=== PATIENT | female | born 1990 | race Two or more races ===

== ENCOUNTER 2017-07-11 19:24 | Emergency (ER) | payer OTHER ==
[~2017-07-11] VITALS: Ht 165.1 cm; Wt 72.6 kg
[2017-07-11] MEDS ORDERED: LITHIUM (19:41)
[2017-07-11] MEDS ORDERED: [UNRECOGNIZED DRUG - REMARK] (19:41)
[2017-07-11] MEDS ORDERED: ABILIFY (19:41)
[2017-07-11] MEDS ORDERED: ENALAPRIL (19:44)
--- NOTE | 2017-07-11 19:50 | NUR ---
Pt resting in position of comfort for self on gurney. Pt has noted flat affect and monotone speech. Pt denies SI and denies HI. Pt denies auditory or visual hallucinations. Per EMS [place] with and her mother and not wanting to go home with either one. When asked pt sts she wants to go home but not with "him" (refering to ). When asked who she sees him as she sts " he is the devil." When pt is questioned about her mother pt sts "she is not my mother." When asked who she believes her to be, pt sts " I dont know but my mother lives in [place]."
[2017-07-11 19:58] LABS: BASOPHILS # (AUTO) 0.1 K/uL (0.0-8.0); EOSINOPHILS % (AUTO) 0.2 % (0.0-7.0); HEMATOCRIT 44.2 % (31.2-41.9); HEMOGLOBIN 14.5 g/dL (10.9-14.3); LYMPHOCYTES # (AUTO) 2.7 K/uL (20.0-40.0); LYMPHOCYTES % (AUTO) 19.7 % (20.5-51.5); MEAN CORPUSCULAR HEMOGLOBIN 26.7 uug (24.7-32.8); MEAN CORPUSCULAR HGB CONC 33 g/dL (32.3-35.6); MEAN CORPUSCULAR VOLUME 81.3 fL (75.5-95.3); MONOCYTES # (AUTO) 0.6 K/uL (2.0-10.0); MONOCYTES % (AUTO) 4.5 % (0.0-11.0); NEUTROPHILS # (AUTO) 10.1 K/uL (1.8-8.9); NEUTROPHILS % (AUTO) 74.6 % (38.5-71.5); PLATELET COUNT (AUTO) 224 K/uL (179-408); RED BLOOD CELL COUNT(AUTO) 5.43 MIL/uL (3.63-4.92); WHITE BLOOD COUNT (AUTO) 13.6 K/uL (3.8-11.8)
--- NOTE | 2017-07-11 20:00 | NUR ---
PT IN BED. PT'S SPOUSE AND MOTHER ARE IN THE WAITING ROOM. PT HAS FLAT AFFECT. PT STATES THAT SPOUSE IS REALLY THE "DEVIL." PT CLAIMS THAT THE WOMAN PRESENT IN ER IS NOT REALLY HER MOTHER. PT IS READING BIBLICAL SCRIPTURES ALOUD.
[2017-07-11 20:05] LABS: CARBON DIOXIDE 27 mmol/L (21-32); CHLORIDE 100 mmol/L (98-107); CREATININE 0.9 mg/dL (0.6-1.3); GLUCOSE 91 mg/dL (74-106); POTASSIUM 3.6 mmol/L (3.5-5.1); UREA NITROGEN, BLOOD 15 mg/dL (7-18)
[2017-07-11 20:07] LABS: ETHANOL < 3 MG/DL (0-0)
[2017-07-11 20:11] LABS: ALANINE AMINOTRANSFERASE 24 U/L (14-59); ALKALINE PHOSPHATASE 41 U/L (50-136); ASPARTATE AMINOTRANSFERASE 15 U/L (15-37); BILIRUBIN,DIRECT 0.1 mg/dL (0.0-0.2); BILIRUBIN,TOTAL 0.4 mg/dL (0.2-1.0); TOTAL PROTEIN, SERUM 7.6 g/dL (6.4-8.2)
[2017-07-11 20:12] LABS: ACETAMINOPHEN < 2.0 ug/mL (10-30)
--- NOTE | 2017-07-11 20:25 | NUR ---
PT IN BED. [employer] OFFICERS AT BEDSIDE.
--- NOTE | 2017-07-11 20:37 | NUR ---
CALL RICKEY GARNETT RN FOR MENTAL HEALTH EVAL. MARIOLA ESTIMATES THAT SHE'LL BE HERE IN AN HOUR.
[2017-07-11 21:00] LABS: *BILIRUBIN,URIN NEGATIVE (NEGATIVE); *BLOOD, URINE NEGATIVE (NEGATIVE); *CLARITY,URINE CLEAR (CLEAR); *COLOR,URINE LIGHT YELLOW (YELLOW); *KETONES,URINE 1+ (NEGATIVE); *PROTEIN,URINE NEGATIVE (NEGATIVE); *UROBILINOGEN,URINE 0.2 E.U./dl (NORMAL); LEUKOCYTE ESTERASE ,URINE NEGATIVE (NEGATIVE); NITRITE, URINE NEGATIVE (NEGATIVE); UGLUCOSE NEGATIVE (NEGATIVE)
[2017-07-11 21:01] LABS: *URINE HCG, QUAL NEGATIVE (NEGATIVE)
[2017-07-11 21:08] LABS: BACTERIA,URINE FEW /HPF (NONE SEEN); RBC,URINE 0-3 /HPF (0-3); SQUAMOUS EPITHELIAL CELL,UR MODERATE /HPF (NONE SEEN)
[2017-07-11 21:10] LABS: *AMPHETAMINE, URINE NEGATIVE (NEGATIVE); *BARBITURATE, URINE NEGATIVE (NEGATIVE); *CANNABINOID, URINE NEGATIVE (NEGATIVE); *COCCAINE, URINE NEGATIVE (NEGATIVE); *OPIATE, URINE NEGATIVE (NEGATIVE); *PHENCYCLIDINE SCREEN,URINE NEGATIVE (NEGATIVE)
[2017-07-11] MEDS ORDERED: LITHIUM CARBONATE 300 MG TABLET PO ONE (21:45)
[2017-07-11] MEDS ORDERED: ARIPIPRAZOLE 5 MG TABLET PO ONE (21:45)
--- NOTE | 2017-07-11 21:45 | NUR ---
PT REFUSED EKG MULTIPLE TIMES. MD WILEY AWARE.
--- NOTE | 2017-07-11 21:55 | NUR ---
Patient discharged to home in stable conditon. Written and verbal after care instructions given. Patient verbalizes understanding of instructions. Patient able to ambulate unassisted with steady gait. Patient left with all of her belongings.
[2017-07-11] MEDS ORDERED: LITHIUM CARBONATE 300 MG TABLET ONE (21:57)
[2017-07-11] MEDS ORDERED: ARIPIPRAZOLE 5 MG TABLET ONE (21:57)
[2017-07-11 22:23] VITALS: BP 142/52
== END 2017-07-11 21:55 | disposition home or self-care (01) ==
LOC: ER 19:26
DX: F29 Unspecified psychosis not due to a substance or known physiological condition (principal); F20.9 Schizophrenia, unspecified; I10 Essential (primary) hypertension; Z79.899 Other long term (current) drug therapy
CPT/HCPCS: 36415; 71045; 80307; 84703; 85025; 93005; A4663; G0480; G0480-TC